=== PATIENT | male | born 1960 | race Caucasian/White ===

== ENCOUNTER 2018-03-10 09:25 | Inpatient (IN) | payer OTHER ==
[2018-03-10 09:39] VITALS: BMI 39.2
[2018-03-10] MEDS ORDERED: ACETAMINOPHEN 325 MG TABLET (FP) PO ONE (09:39)
[2018-03-10] MEDS ORDERED: SODIUM CHLORIDE 1,000 ML IV STA ×4 (09:52→17:23)
[2018-03-10] MEDS ORDERED: ACETAMINOPHEN 1000 MG/100 ML VIAL (NON FORMULARY) IVPB ONE (09:54)
--- NOTE | 2018-03-10 10:35 | PDOC ---
History of Present Illness - General Chief Complaint: SIRS, Suspected/Possible Stated Complaint: URINARY PROBLEM, VOMITING Time Seen by Provider: 03/10/18 09:49 History Source: Patient Exam Limitations: No Limitations - History of Present Illness Travel History: No Initial Comments: 03/10/18 10:00 57-year-old male with history of diabetes presents to the ED with complaints of chills upon awakening this morning along with dysuria and suprapubic pressure. Patient states had no urinary complaints prior to his morning. Patient also states history of enlarged prostate but denies frequent UTIs. Patient has no complaints of chest pain, shortness of breath, headache, cough, upper abdominal pain, back pain, or open wounds. Timing/Duration: reports: constant Quality: reports: moderate, fullness Abdominal Pain Onset Location: reports: suprapubic Pain Radiation: reports: no radiation Activities at Onset: reports: none Aggravating Factors: improves with: None Alleviating Factors: improves with: Voiding Past History - Travel Traveled outside of the country in the last 30 days: No - Past Medical History Allergies/Adverse Reactions: Allergies Allergy/AdvReac Type Severity Reaction Status Date / Time No Known Allergies Allergy Verified 03/10/18 09:34 Home Medications: Ambulatory Orders Aspirin [Aspirin EC] 81 mg PO DAILY 03/10/18 Glipizide [Glipizide ER] 2.5 mg PO DAILY 03/10/18 Levothyroxine [Synthroid -] 100 mcg PO DAILY 03/10/18 Lisinopril 5 mg PO DAILY 03/10/18 Metformin HCl [Glucophage] 1,000 mg PO BID 03/10/18 Metoprolol Succinate [Toprol Xl] 25 mg PO DAILY 03/10/18 Pravastatin Sodium 20 mg PO HS 03/10/18 Tamsulosin HCl 0.4 mg PO HS 03/10/18 COPD: No Diabetes: Yes (NIDDM) HTN: Yes Hypercholesterolemia: Yes - Suicide/Smoking/Psychosocial Hx Smoking History: Never smoked Have you smoked in the past 12 months: No Information on smoking cessation initiated: No Hx Alcohol Use: No Drug/Substance Use Hx: No Substance Use Type: None Patient Lives Alone: No Lives with/in: spouse/SO Review of Systems - Review of Systems Able to Perform ROS?: No Constitutional: Yes: Chills, Fever, Weakness HEENTM: No: Symptoms Reported Respiratory: No: Symptoms reported Cardiac (ROS): No: Symptoms Reported ABD/GI: Yes: Abdominal cramping : Yes: Dysuria, Frequency. No: Flank Pain Musculoskeletal: No: Symptoms Reported Integumentary: No: Symptoms Reported Neurological: No: Symptoms reported Endocrine: No: Symptoms Reported Hematologic/Lymphatic: No: Symptoms Reported *Physical Exam - Vital Signs Last Vital Signs Temp Pulse Resp BP Pulse Ox 102.5 F H 105 H 18 148/90 100 03/10/18 09:35 03/10/18 09:35 03/10/18 09:35 03/10/18 09:35 03/10/18 09:35 - Physical Exam General Appearance: Yes: Nourished, Appropriately Dressed. No: Apparent Distress HEENT: positive: Pharynx Normal. negative: Pale Conjunctivae Respiratory/Chest: positive: Lungs Clear, Normal Breath Sounds. negative: Respiratory Distress, Accessory Muscle Use Cardiovascular: positive: Regular Rhythm, Tachycardia. negative: Murmur Gastrointestinal/Abdominal: positive: Soft, Tenderness (midsuprapubic) Extremity: positive: Normal Capillary Refill. negative: Pedal Edema Integumentary: positive: Normal Color, Warm, Moist Neurologic: positive: Motor Strength 5/5 (ambulatory) ED Treatment Course - LABORATORY CBC & Chemistry Diagram: 03/10/18 10:20 03/10/18 10:20 - RADIOLOGY Radiology Studies Ordered: Category Date Time Status CHEST X-RAY PORTABLE* [RAD] Stat Radiology 03/10/18 09:52 Ordered PELVIC / BLADDER US [US] Stat Ultrasound 03/10/18 10:01 Ordered - Medications Given in the ED: ED Medications Discontinued Medications Generic Name Dose Route Start Last Admin Trade Name Freq PRN Reason Stop Dose Admin Acetaminophen 975 mg 03/10/18 09:39 03/10/18 09:40 Tylenol - PO 03/10/18 09:40 975 mg NOW ONE Administration Medical Decision Making - Medical Decision Making 03/10/18 11:16 Patient arrives with fever, suprapubic tenderness and urinary complaints. Patient was febrile and tachycardic upon arrival. Septic workup initiated. Patient also ordered for bladder/pelvic ultrasound. 03/10/18 11:27 Laboratory Tests 03/10/18 03/10/18 03/10/18 10:20 10:20 10:20 WBC 14.3 H Hgb 13.1 Hct 39.2 Neutrophils % 94.6 H Lymphocytes % 2.9 L Monocytes % 1.6 L Sodium 138 Potassium 4.0 Chloride 103 Random Glucose 207 H Calcium 8.3 L Troponin I Ur Leukocyte Esterase 3+ H Urine WBC (Auto) 139 Urine RBC (Auto) 19 03/10/18 10:20 WBC Hgb Hct Neutrophils % Lymphocytes % Monocytes % Sodium Potassium Chloride Random Glucose Calcium Troponin I < 0.02 Ur Leukocyte Esterase Urine WBC (Auto) Urine RBC (Auto) Patient ordered for second bag of IV fluids along with IV ceftriaxone and will be admitted to the hospital since his primary care physician Dr. Ghulam Miranda does not admit to [facility] Patient pending ultrasound.. 03/10/18 12:42 case discussed with Lucero Salazar and patient will be accepted to [facility] inpatient under Dr. Ortiz. *DC/Admit/Observation/Transfer Diagnosis at time of Disposition: Severe sepsis, UTI (urinary tract infection) - Discharge Dispostion Decision to Admit order: Yes - Referrals Referrals: Ghulam Mueller MD [Primary Care Provider] - - Patient Instructions - Post Discharge Activity
[2018-03-10 10:36] LABS: BASO % 0.3 % (0-2.0); EOS % 0.6 % (0-4.5); HEMATOCRIT 39.2 % (35.4-49); HEMOGLOBIN 13.1 GM/dL (11.7-16.9); LYMPH % 2.9 % (8-40); MCH 31.5 pg (25.7-33.7); MCHC 33.4 g/dl (32.0-35.9); MEAN CELL VOLUME 94.4 fl (80-96); MEAN PLT VOLUME 7.8 fl (7.5-11.1); MONO % 1.6 % (3.8-10.2); NEUT % 94.6 % (42.8-82.8); PLATELET COUNT 194 K/MM3 (134-434); RBC 4.15 M/mm3 (4.00-5.60); RDW 13.5 % (11.9-15.9); WHITE BLOOD COUNT 14.3 K/mm3 (4.0-10.0)
[2018-03-10 10:37] LABS: URINE APPEARANCE SLCLOUDY; URINE BILIRUBIN NEGATIVE (<2.0 mg/dL); URINE BLOOD 2+ (NEGATIVE); URINE COLOR LTYELLOW; URINE GLUCOSE (UA) NEGATIVE (NEGATIVE); URINE KETONE NEGATIVE (NEGATIVE); URINE NITRITE NEGATIVE (NEGATIVE); URINE UROBILINOGEN NEGATIVE mg/dL (0.2-1.0)
[2018-03-10 10:44] LABS: URINE LEUK ESTERASE 3+ (NEGATIVE); URINE PROTEIN 1+ (NEGATIVE)
[2018-03-10 10:48] LABS: EPI CELLS RARE /HPF (FEW); YEAST FEW
[2018-03-10 10:50] LABS: INR 1.1 (0.82-1.09); PROTHROMBIN TIME (PATIENT) 12.4 SEC (9.7-13.0)
[2018-03-10 11:00] LABS: ALBUMIN 3.8 g/dl (3.4-5.0); ALK PHOS 77 U/L (45-117); ANION GAP 8 (8-16); BILIRUBIN,TOTAL 0.9 mg/dL (0.2-1.0); BLOOD UREA NITROGEN 16 mg/dL (7-18); CALCIUM 8.3 mg/dL (8.5-10.1); CHLORIDE 103 mmol/L (98-107); CO2 27 mmol/L (21-32); CREATININE 1.1 mg/dL (0.7-1.3); GLUCOSE,RANDOM 207 mg/dL (74-106); SGOT/AST 15 U/L (15-37); SGPT/ALT 26 U/L (12-78); SODIUM 138 mmol/L (136-145); TOT PROT 7.3 g/dl (6.4-8.2)
[2018-03-10 11:02] LABS: VENOUS PH 7.41 (7.32-7.42); VENOUS PO2 42.8 mmHg (28-48)
[2018-03-10] MEDS ORDERED: CEFTRIAXONE 1 GM in DEXTROSE 5%-WATER - 50 ML IVPB ONE (11:23)
[2018-03-10] MEDS ORDERED: CEFTRIAXONE 1 GM/50 ML BAG ONE (11:25)
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
[2018-03-10 12:46] LABS: ACANTHOCYTES 0; ANISOCYTOSIS 0; HELMET CELLS 0; HOWELL-JOLLY BODIES 0; MACROCYTOSIS 0; OVALOCYTE 0; PLATELET ESTIMATE NORMAL; ROULEAU 0; SICKELED CELLS 0; TARGET CELLS 0; TEAR DROP CELLS 0; TOXIC GRANULATION 0
[2018-03-10] MEDS ORDERED: IBUPROFEN 600 MG TABLET (FP) PO ONE ×2 (13:10)
[2018-03-10] MEDS: ACETAMINOPHEN 325 MG TABLET (FP) PO PRN (17:27)
[2018-03-10] MEDS: INSULIN SLIDING SCALE (NOVOLOG) 1 VIAL SQ SCH ×2 (17:40→21:56)
[2018-03-10] MEDS: SODIUM CHLORIDE 1,000 ML IV SCH (20:00)
[2018-03-10] MEDS: TAMSULOSIN HCL 0.4 MG CAP.ER.24H (FP) PO SCH (21:49)
[2018-03-10] MEDS: ATORVASTATIN CA 10 MG TABLET (FP) PO SCH (21:50)
[2018-03-11] MEDS: ACETAMINOPHEN 325 MG TABLET (FP) PO PRN ×4 (00:17→21:04)
[2018-03-11] MEDS: SODIUM CHLORIDE 1,000 ML IV SCH ×3 (03:17→21:12)
[2018-03-11] MEDS: LEVOTHYROXINE NA 100 MCG TABLET (FP) PO SCH (06:02)
[2018-03-11] MEDS: INSULIN SLIDING SCALE (NOVOLOG) 1 VIAL SQ SCH ×5 (06:03→21:05)
[2018-03-11 07:58] LABS: BASO % 0.4 % (0-2.0); EOS % 0.3 % (0-4.5); HEMATOCRIT 34.2 % (35.4-49); HEMOGLOBIN 11.7 GM/dL (11.7-16.9); MCH 32.4 pg (25.7-33.7); MCHC 34.1 g/dl (32.0-35.9); MEAN PLT VOLUME 8.4 fl (7.5-11.1); MONO % 2.6 % (3.8-10.2); NEUT % 95.7 % (42.8-82.8); PLATELET COUNT 151 K/MM3 (134-434); RDW 13.8 % (11.9-15.9); WHITE BLOOD COUNT 12.6 K/mm3 (4.0-10.0)
[2018-03-11 08:53] LABS: ANION GAP 8 (8-16); BLOOD UREA NITROGEN 14 mg/dL (7-18); CALCIUM 7.3 mg/dL (8.5-10.1); CHLORIDE 106 mmol/L (98-107); CO2 25 mmol/L (21-32); GLUCOSE,RANDOM 180 mg/dL (74-106); MAGNESIUM 1.2 mg/dL (1.8-2.4); POTASSIUM 3.9 mmol/L (3.5-5.1); SODIUM 139 mmol/L (136-145)
[2018-03-11 08:58] LABS: ALK PHOS 60 U/L (45-117); BILIRUBIN,TOTAL 1.4 mg/dL (0.2-1.0); CREATININE 1.1 mg/dL (0.7-1.3); SGOT/AST 20 U/L (15-37); SGPT/ALT 25 U/L (12-78); TOT PROT 5.9 g/dl (6.4-8.2)
[2018-03-11] MEDS ORDERED: CEFTRIAXONE 1 GM in DEXTROSE 5%-WATER 100 ML IVPB SCH (10:00)
[2018-03-11] MEDS ORDERED: cefTRIAXone SODIUM 1 GM VIAL ONE (10:14)
[2018-03-11] MEDS ORDERED: DEXTROSE 5%-WATER 100 ML IVPB ONE (10:14)
[2018-03-11] MEDS: ENOXAPARIN NA (PORCINE) 40 MG/0.4 ML DISP.SYRIN SQ SCH (10:33)
[2018-03-11] MEDS: ASPIRIN COATED 81 MG TABLET.EC PO SCH (10:33)
[2018-03-11] MEDS: LISINOPRIL 5 MG TABLET (FP) PO SCH (10:33)
[2018-03-11] MEDS: metoPROLOL SUCCINATE 25 MG TAB.SR.24H (FP) PO SCH (10:34)
--- NOTE | 2018-03-11 15:09 | PN ---
Physical Exam: SUBJECTIVE: Patient seen and examined. Complaining of headache, body aches. OBJECTIVE: Vital Signs Period Temp Pulse Resp BP Sys/Jasmine Pulse Ox Last 24 Hr 98 F-102.5 F 86-102 18-20 87-139/47-73 96 GENERAL: The patient is awake, alert, and fully oriented, ill-appearing. LUNGS: Breath sounds equal, clear to auscultation bilaterally. No wheezes, and no crackles. No accessory muscle use. HEART: Regular rate and rhythm, normal S1 and S2 ABDOMEN: Soft, nontender, not distended, normoactive bowel sounds, no guarding, no rebound UPPER EXTREMITIES: 2+ pulses, warm, well-perfused. No cyanosis. No clubbing. No peripheral edema. LOWER EXTREMITIES: 2+ pulses, warm, well-perfused. No calf tenderness. No peripheral edema. NEUROLOGICAL: Cranial nerves II-XII intact. Normal speech. Laboratory Results - last 24 hr 03/10/18 03/10/18 03/10/18 16:15 17:00 17:16 WBC RBC Hgb Hct MCV MCH MCHC RDW Plt Count MPV Neutrophils % Lymphocytes % Monocytes % Eosinophils % Basophils % Nucleated RBC % Sodium Potassium Chloride Carbon Dioxide Anion Gap BUN Creatinine Creat Clearance w eGFR POC Glucometer 156 Random Glucose Hemoglobin A1c % Lactic Acid 3.2 H* Calcium Magnesium Total Bilirubin AST ALT Alkaline Phosphatase C-Reactive Protein 0.7 H Total Protein Albumin 03/10/18 03/10/18 03/11/18 20:00 21:52 05:56 WBC RBC Hgb Hct MCV MCH MCHC RDW Plt Count MPV Neutrophils % Lymphocytes % Monocytes % Eosinophils % Basophils % Nucleated RBC % Sodium Potassium Chloride Carbon Dioxide Anion Gap BUN Creatinine Creat Clearance w eGFR POC Glucometer 204 188 Random Glucose Hemoglobin A1c % Lactic Acid 2.4 H* Calcium Magnesium Total Bilirubin AST ALT Alkaline Phosphatase C-Reactive Protein Total Protein Albumin 03/11/18 03/11/18 03/11/18 06:25 06:25 06:25 WBC 12.6 H RBC 3.60 L Hgb 11.7 D Hct 34.2 L MCV 95.0 MCH 32.4 MCHC 34.1 RDW 13.8 Plt Count 151 D MPV 8.4 Neutrophils % 95.7 H Lymphocytes % 1.0 L D Monocytes % 2.6 L Eosinophils % 0.3 Basophils % 0.4 Nucleated RBC % 0 Sodium 139 Potassium 3.9 Chloride 106 Carbon Dioxide 25 Anion Gap 8 BUN 14 Creatinine 1.1 Creat Clearance w eGFR > 60 POC Glucometer Random Glucose 180 H Hemoglobin A1c % 7.6 H Lactic Acid Calcium 7.3 L Magnesium 1.2 L Total Bilirubin 1.4 H D AST 20 D ALT 25 Alkaline Phosphatase 60 D C-Reactive Protein Total Protein 5.9 L Albumin 3.0 L D 03/11/18 06:25 WBC RBC Hgb Hct MCV MCH MCHC RDW Plt Count MPV Neutrophils % Lymphocytes % Monocytes % Eosinophils % Basophils % Nucleated RBC % Sodium Potassium Chloride Carbon Dioxide Anion Gap BUN Creatinine Creat Clearance w eGFR POC Glucometer Random Glucose Hemoglobin A1c % Lactic Acid 2.4 H* Calcium Magnesium Total Bilirubin AST ALT Alkaline Phosphatase C-Reactive Protein Total Protein Albumin Active Medications Generic Name Dose Route Start Last Admin Trade Name Freq PRN Reason Stop Dose Admin Acetaminophen 650 mg 03/10/18 14:59 03/11/18 13:31 Tylenol - PO 650 mg Q6H PRN Administration FEVER Aspirin 81 mg 03/11/18 10:00 03/11/18 10:33 Ecotrin - PO 81 mg DAILY ISAI Administration Atorvastatin Calcium 10 mg 03/10/18 22:00 03/10/18 21:50 Lipitor - PO 10 mg HS ISAI Administration Enoxaparin Sodium 40 mg 03/11/18 10:00 03/11/18 10:33 Lovenox - SQ 40 mg DAILY ISAI Administration Sodium Chloride 1,000 mls @ 125 mls/hr 03/10/18 15:00 03/11/18 03:17 Normal Saline - IV 125 mls/hr ASDIR ISAI Administration Meropenem 1 gm/ Dextrose 100 mls @ 200 mls/hr 03/11/18 15:00 IVPB Q8H-IV ISAI Insulin Aspart 1 vial 03/10/18 16:30 03/11/18 06:03 Novolog Vial Sliding Scale - SQ 2 unit ACHS ISAI Administration Protocol Levothyroxine Sodium 100 mcg 03/11/18 07:00 03/11/18 06:02 Synthroid - PO 100 mcg DAILY@0700 ISAI Administration Lisinopril 5 mg 03/11/18 10:00 03/11/18 10:33 Prinivil PO 5 mg DAILY ISAI Administration Metoprolol Succinate 25 mg 03/11/18 10:00 03/11/18 10:34 Toprol Xl - PO 25 mg DAILY ISAI Administration Tamsulosin HCl 0.4 mg 03/10/18 22:00 03/10/18 21:49 Flomax - PO 0.4 mg HS ISAI Administration ASSESSMENT/PLAN 57 year-old male with a PMH significant for NIDDM and BPH. Admitted for severe sepsis secondary to UTI. Severe sepsis secondary to UTI --Tm 102.5, WBC 12.6k --BP stabilized after 4L of fluids --was anuric for most of yesterday, started making urine last night ~ 50cc's per hour --urine culture LFGNB and NLFGNB --discussed with Dr. Negro, will start carbapenem --US kidneys pending NIDDM --Novolog sliding scale coverage BPH --US shows enlarged prostate but no post void residual FEN Fluids: NS @ 125mL/hr Electrolytes: replete as indicated Nutrition: regular diet DVT prophylaxis: lovenox Dispo: continues to require inpatient care. Full code. Visit type - Emergency Visit Emergency Visit: Yes ED Registration Date: 03/10/18 Care time: The patient presented to the Emergency Department on the above date and was hospitalized for further evaluation of their emergent condition. - New Patient This patient is new to me today: Yes Date on this admission: 03/11/18 - Critical Care Critical Care patient: Yes Total Critical Care Time (in minutes): 35 Critical Care Statement: The care of this patient involved high complexity decision making to prevent further life threatening deterioration of the patient 's condition and/or to evaluate & treat vital organ system(s) failure or risk of failure.
[2018-03-11] MEDS ORDERED: INSULIN (NOVOLOG) ASPART 100 UNITS/ML 10ML VIAL ONE (15:21)
--- NOTE | 2018-03-11 16:07 | PN ---
Progress Note (short form) - Note Progress Note: ID consult dictated imp/reccd sepsis UTI-no prior history, prior prostate biopsy several years ago acute prostatitis bph with urinary retention, yoo placed in ED diabetes bladder/renal sonogram carbapenem/ivf f/u cultures urology consult d/w hospitalist
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
[2018-03-11] MEDS: MEROPENEM 1 GM in DEXTROSE 5%-WATER 100 ML IVPB SCH ×2 (17:45→21:04)
[2018-03-11] MEDS ORDERED: MAGNESIUM SULF 50% (8.12 MEQ/2 ML-1 GM VIAL) IVPB ONE (19:07)
[2018-03-11] MEDS ORDERED: MAGNESIUM SULFATE IN WATER 2 GM/50 ML IVPB IVPB ONE (19:15)
[2018-03-11] MEDS: ATORVASTATIN CA 10 MG TABLET (FP) PO SCH (21:05)
[2018-03-11] MEDS: TAMSULOSIN HCL 0.4 MG CAP.ER.24H (FP) PO SCH (21:05)
[2018-03-11] MEDS ORDERED: LACTOBACILLUS ACIDOPHILUS 1 TABLET PO ONE (21:27)
[2018-03-12] MEDS: MEROPENEM 1 GM in DEXTROSE 5%-WATER 100 ML IVPB SCH ×3 (02:13→17:40)
[2018-03-12] MEDS: ACETAMINOPHEN 325 MG TABLET (FP) PO PRN ×2 (04:33→12:14)
[2018-03-12] MEDS: INSULIN SLIDING SCALE (NOVOLOG) 1 VIAL SQ SCH ×4 (06:38→22:00)
[2018-03-12] MEDS: LEVOTHYROXINE NA 100 MCG TABLET (FP) PO SCH (06:38)
[2018-03-12] MEDS ORDERED: PT OWN MED DRAWER 7, Y5N ONE (07:15)
[2018-03-12] MEDS ORDERED: INSULIN (NOVOLOG) ASPART 100 UNITS/ML 10ML VIAL ONE ×2 (07:15→12:12)
--- NOTE | 2018-03-12 08:49 | PN ---
Progress Note (short form) - Note Progress Note: no fever this am still some headache eating Vital Signs Period Temp Pulse Resp BP Sys/Jasmine Pulse Ox Last 24 Hr 98.2 F-102.9 F 89-102 18-20 115-139/60-73 94 cor-rrr lungs clear abd soft,nt ext no edema +yoo CBC, BMP 03/11/18 06:25 03/11/18 06:25 Microbiology 03/10/18 10:00 Urine - Urine Clean Catch Urine Culture - Preliminary Non Lactose Fermenting Gnb Lactose Fermenting Neg Bacilli 03/10/18 10:10 Blood - Peripheral Venous Blood Culture - Preliminary NO GROWTH OBTAINED AFTER 24 HOURS, INCUBATION TO CONTINUE FOR 4 DAYS. 03/10/18 10:00 Blood - Peripheral Venous Blood Culture - Preliminary NO GROWTH OBTAINED AFTER 24 HOURS, INCUBATION TO CONTINUE FOR 4 DAYS. a/p sepsis suspect acute prostatitis/UTI suggest urology eval continue antibiotics f/u cultures diabetes
[2018-03-12] MEDS: ASPIRIN COATED 81 MG TABLET.EC PO SCH (09:12)
[2018-03-12] MEDS: metoPROLOL SUCCINATE 25 MG TAB.SR.24H (FP) PO SCH (09:12)
[2018-03-12] MEDS: ENOXAPARIN NA (PORCINE) 40 MG/0.4 ML DISP.SYRIN SQ SCH (09:13)
[2018-03-12] MEDS: LISINOPRIL 5 MG TABLET (FP) PO SCH (09:13)
[2018-03-12] MEDS: SODIUM CHLORIDE 1,000 ML IV SCH ×3 (09:13→17:44)
--- NOTE | 2018-03-12 14:05 | PN ---
Physical Exam: SUBJECTIVE: Patient seen and examined oob to chair. Family present. States tylenol helps with headache but would like it dosed more frequently. For first time patient states he has a cat at home and four days prior to this admission the cat scratched him on his right hand. Hand became red and swollen. No streaking up the arm. Sometimes the cat clamps down on his hand but he does not think his hand was punctured on this occasion. OBJECTIVE: Vital Signs Period Temp Pulse Resp BP Sys/Jasmine Pulse Ox Last 24 Hr 98.2 F-102.9 F 89-102 18-20 115-138/66-77 94 GENERAL: The patient is awake, alert, and fully oriented, in no acute distress. LUNGS: Breath sounds equal, clear to auscultation bilaterally, no wheezes, no crackles, no accessory muscle use. HEART: Regular rate and rhythm, S1, S2 without murmur, rub or gallop. ABDOMEN: Soft, nontender, nondistended, normoactive bowel sounds, no guarding, no rebound, no hepatosplenomegaly, no masses. RIGHT HAND: Two 1cm healed scratches on dorsal aspect of right hand; no erythema ; no swelling; no lymphangitis EXTREMITIES: 2+ pulses, warm, well-perfused, no edema. NEUROLOGICAL: Cranial nerves II through XII grossly intact. Normal speech, gait not observed. PSYCH: Normal mood, normal affect. SKIN: Warm, dry, normally pigmented. CBCD WBC 12.6 K/mm3 (4.0-10.0) H 03/11/18 06:25 RBC 3.60 M/mm3 (4.00-5.60) L 03/11/18 06:25 Hgb 11.7 GM/dL (11.7-16.9) D 03/11/18 06:25 Hct 34.2 % (35.4-49) L 03/11/18 06:25 MCV 95.0 fl (80-96) 03/11/18 06:25 MCHC 34.1 g/dl (32.0-35.9) 03/11/18 06:25 RDW 13.8 % (11.9-15.9) 03/11/18 06:25 Plt Count 151 K/MM3 (134-434) D 03/11/18 06:25 MPV 8.4 fl (7.5-11.1) 03/11/18 06:25 CMP Sodium 139 mmol/L (136-145) 03/11/18 06:25 Potassium 3.9 mmol/L (3.5-5.1) 03/11/18 06:25 Chloride 106 mmol/L (98-107) 03/11/18 06:25 Carbon Dioxide 25 mmol/L (21-32) 03/11/18 06:25 Anion Gap 8 (8-16) 03/11/18 06:25 BUN 14 mg/dL (7-18) 03/11/18 06:25 Creatinine 1.1 mg/dL (0.7-1.3) 03/11/18 06:25 Creat Clearance w eGFR > 60 (>60) 03/11/18 06:25 Calcium 7.3 mg/dL (8.5-10.1) L 03/11/18 06:25 Total Bilirubin 1.4 mg/dL (0.2-1.0) H D 03/11/18 06:25 AST 20 U/L (15-37) D 03/11/18 06:25 ALT 25 U/L (12-78) 03/11/18 06:25 Alkaline Phosphatase 60 U/L (45-117) D 03/11/18 06:25 Total Protein 5.9 g/dl (6.4-8.2) L 03/11/18 06:25 Albumin 3.0 g/dl (3.4-5.0) L D 03/11/18 06:25 Active Medications Generic Name Dose Route Start Last Admin Trade Name Juan M PRN Reason Stop Dose Admin Acetaminophen 650 mg 03/10/18 14:59 03/12/18 12:14 Tylenol - PO 650 mg Q6H PRN Administration FEVER Aspirin 81 mg 03/11/18 10:00 03/12/18 09:12 Ecotrin - PO 81 mg DAILY ISAI Administration Atorvastatin Calcium 10 mg 03/10/18 22:00 03/11/18 21:05 Lipitor - PO 10 mg HS ISAI Administration Enoxaparin Sodium 40 mg 03/11/18 10:00 03/12/18 09:13 Lovenox - SQ 40 mg DAILY ISAI Administration Sodium Chloride 1,000 mls @ 125 mls/hr 03/10/18 15:00 03/12/18 09:13 Normal Saline - IV 125 mls/hr ASDIR ISAI Administration Meropenem 1 gm/ Dextrose 100 mls @ 200 mls/hr 03/11/18 15:00 03/12/18 09:12 IVPB 200 mls/hr Q8H-IV ISAI Administration Insulin Aspart 1 vial 03/10/18 16:30 03/12/18 12:15 Novolog Vial Sliding Scale - SQ 4 unit ACHS ISAI Administration Protocol Levothyroxine Sodium 100 mcg 03/11/18 07:00 03/12/18 06:38 Synthroid - PO 100 mcg DAILY@0700 ISAI Administration Lisinopril 5 mg 03/11/18 10:00 03/12/18 09:13 Prinivil PO 5 mg DAILY ISAI Administration Metoprolol Succinate 25 mg 03/11/18 10:00 03/12/18 09:12 Toprol Xl - PO 25 mg DAILY ISAI Administration Tamsulosin HCl 0.4 mg 03/10/18 22:00 03/11/18 21:05 Flomax - PO 0.4 mg HS ISAI Administration ASSESSMENT/PLAN: 57 year-old male with a PMH significant for NIDDM and BPH. Admitted for severe sepsis secondary to UTI. Severe sepsis secondary to UTI --Tm 102.9, leukocytosis --BP stabilized after 4L of fluids --UOP ~50cc's/hr; yoo d/c'd --urine culure E.coli spears sensitive --continue meropenem pending ID reassessment Cat scratch --start azithromycin --B. henselae Ab pending Diarrhea --c.diff, stool cultures ordered NIDDM --Novolog sliding scale coverage BPH --US shows enlarged prostate but no post void residual FEN Fluids: NS @ 125mL/hr Electrolytes: replete as indicated Nutrition: regular diet DVT prophylaxis: lovenox Dispo: continues to require inpatient care. Full code. Visit type - Emergency Visit Emergency Visit: Yes ED Registration Date: 03/10/18 Care time: The patient presented to the Emergency Department on the above date and was hospitalized for further evaluation of their emergent condition. - New Patient This patient is new to me today: No - Critical Care Critical Care patient: No
[2018-03-12] MEDS ORDERED: AZITHROMYCIN 250 MG TABLET PO ONE (17:15)
[2018-03-12] MEDS: ACETAMINOPHEN 500 MG TABLET (FP) PO SCH ×2 (17:40→22:01)
[2018-03-12] MEDS: TAMSULOSIN HCL 0.4 MG CAP.ER.24H (FP) PO SCH (22:01)
[2018-03-12] MEDS: ATORVASTATIN CA 10 MG TABLET (FP) PO SCH (22:01)
[2018-03-13] MEDS: MEROPENEM 1 GM in DEXTROSE 5%-WATER 100 ML IVPB SCH ×2 (01:46→10:31)
[2018-03-13] MEDS: ACETAMINOPHEN 500 MG TABLET (FP) PO SCH ×6 (01:46→22:22)
[2018-03-13] MEDS: SODIUM CHLORIDE 1,000 ML IV SCH ×2 (01:47→04:07)
[2018-03-13] MEDS: INSULIN SLIDING SCALE (NOVOLOG) 1 VIAL SQ SCH ×4 (06:36→22:25)
[2018-03-13] MEDS: LEVOTHYROXINE NA 100 MCG TABLET (FP) PO SCH (06:37)
--- NOTE | 2018-03-13 08:07 | PN ---
Physical Exam: SUBJECTIVE: Patient ambulating in room, states he has had headaches on and off for the past few months. Headache pain frontal 8/10 associated with nausea, no photophobia. Agrees to CT scan. OBJECTIVE: head ct for persistent headaches right hand with edema, mild scratches noted from possible cat bites and scratches, no streaking noted xray right hand now Vital Signs Period Temp Pulse Resp BP Sys/Jasmine Pulse Ox Last 24 Hr 98.4 F-100.2 F 79-97 20-20 114-142/56-85 98 GENERAL: The patient is awake, alert, and fully oriented, in no acute distress. HEAD: Normal with no signs of trauma. EYES: PERRL, extraocular movements intact, sclera anicteric, conjunctiva clear. No ptosis. ENT: Ears normal, nares patent, oropharynx clear without exudates, moist mucous membranes. NECK: Trachea midline, full range of motion, supple. LUNGS: Breath sounds equal, clear to auscultation bilaterally, no wheezes, no crackles HEART: Regular rate and rhythm ABDOMEN: Soft, nontender, nondistended, normoactive bowel sounds EXTREMITIES: mild bilateral edema on lower ext, right hand with edema, will xray NEUROLOGICAL: Cranial nerves II through XII grossly intact. Normal speech, gait not observed. PSYCH: Normal mood, normal affect. SKIN: Warm, dry, normal turgor, no rashes or lesions noted Laboratory Results - last 24 hr 03/12/18 03/12/18 03/12/18 11:52 17:09 21:59 POC Glucometer 235 210 186 03/13/18 06:32 POC Glucometer 192 Active Medications Generic Name Dose Route Start Last Admin Trade Name Dedrickq PRN Reason Stop Dose Admin Acetaminophen 500 mg 03/12/18 18:00 03/13/18 06:36 Tylenol - PO Not Given Q4HPO ISAI Aspirin 81 mg 03/11/18 10:00 03/12/18 09:12 Ecotrin - PO 81 mg DAILY ISAI Administration Atorvastatin Calcium 10 mg 03/10/18 22:00 03/12/18 22:01 Lipitor - PO 10 mg HS ISAI Administration Azithromycin 250 mg 03/13/18 10:00 Zithromax - PO 03/16/18 10:01 DAILY ISAI Enoxaparin Sodium 40 mg 03/11/18 10:00 03/12/18 09:13 Lovenox - SQ 40 mg DAILY ISAI Administration Meropenem 1 gm/ Dextrose 100 mls @ 200 mls/hr 03/11/18 15:00 03/13/18 01:46 IVPB 200 mls/hr Q8H-IV ISAI Administration Sodium Chloride 1,000 mls @ 75 mls/hr 03/13/18 04:01 03/13/18 04:07 Normal Saline - IV Not Given ASDIR ISAI Insulin Aspart 1 vial 03/10/18 16:30 03/13/18 06:36 Novolog Vial Sliding Scale - SQ 2 unit ACHS ISAI Administration Protocol Levothyroxine Sodium 100 mcg 03/11/18 07:00 03/13/18 06:37 Synthroid - PO 100 mcg DAILY@0700 ISAI Administration Lisinopril 5 mg 03/11/18 10:00 03/12/18 09:13 Prinivil PO 5 mg DAILY ISAI Administration Metoprolol Succinate 25 mg 03/11/18 10:00 03/12/18 09:12 Toprol Xl - PO 25 mg DAILY ISAI Administration Tamsulosin HCl 0.4 mg 03/10/18 22:00 03/12/18 22:01 Flomax - PO 0.4 mg HS ISAI Administration ASSESSMENT/PLAN: Patient is a 57 year old male with a significant past medical history of diabetes, chronic headaches and BPH. He was admitted on 03/10/2018 for severe sepsis secondary to UTI. ID: Severe sepsis secondary to UTI On Meropenem per ID Fever resolving, WBC stable Cat scratch/bite reported on right hand B. henselae Ab pending Hand xray negative for fracture GI: Diarrhea Cdiff pending Endocrine: Diabetes, chronic SS : BPH, chronic On Flomax, finesteride FEN NS @ 125mL/hr replete as indicated regular diet DVT prophylaxis: lovenox Dispo: continues to require inpatient care. Full code.
[2018-03-13] MEDS ORDERED: AZITHROMYCIN 250 MG TABLET PO SCH (10:00)
[2018-03-13] MEDS: ENOXAPARIN NA (PORCINE) 40 MG/0.4 ML DISP.SYRIN SQ SCH (10:10)
[2018-03-13] MEDS: metoPROLOL SUCCINATE 25 MG TAB.SR.24H (FP) PO SCH (10:28)
[2018-03-13] MEDS: ASPIRIN COATED 81 MG TABLET.EC PO SCH (10:29)
[2018-03-13] MEDS: LISINOPRIL 5 MG TABLET (FP) PO SCH (10:29)
[2018-03-13] MEDS ORDERED: PT OWN MED DRAWER 7, Y5N ONE (10:33)
[2018-03-13] MEDS ORDERED: INSULIN (NOVOLOG) ASPART 100 UNITS/ML 10ML VIAL ONE (11:48)
--- NOTE | 2018-03-13 13:26 | CON.GU ---
Consult Consult Specialty:: Referred by:: Medicine Reason for Consultation:: acute prostatitis - History of Present Illness Chief Complaint: acute prostatitis History of Present Illness: 57 year old male with untreated BPH who presents with burning, painful and frequent urination. He has a history of BPH which is not treated. He reports having a prostate biopsy about five years ago which was negative. - History Source History Provided By: Patient Limitations to Obtaining History: No Limitations - Past Medical History Renal/: Yes: BPH, UTI - Alcohol/Substance Use Hx Alcohol Use: No - Smoking History Smoking history: Never smoked Have you smoked in the past 12 months: No Home Medications - Allergies Allergies/Adverse Reactions: Allergies Allergy/AdvReac Type Severity Reaction Status Date / Time No Known Allergies Allergy Verified 03/10/18 09:34 - Home Medications Home Medications: Ambulatory Orders Aspirin [Aspirin EC] 81 mg PO DAILY 03/10/18 Glipizide [Glipizide ER] 2.5 mg PO DAILY 03/10/18 Levothyroxine [Synthroid -] 100 mcg PO DAILY 03/10/18 Lisinopril 5 mg PO DAILY 03/10/18 Metformin HCl [Glucophage] 1,000 mg PO BID 03/10/18 Metoprolol Succinate [Toprol Xl] 25 mg PO DAILY 03/10/18 Pravastatin Sodium 20 mg PO HS 03/10/18 Tamsulosin HCl 0.4 mg PO HS 03/10/18 Review of Systems - Review of Systems Constitutional: reports: Chills, Fever Genitourinary: reports: Burning, Dysuria, Frequency. denies: Hematuria Physical Exam- Vital Signs: Vital Signs Temperature 98.4 F 03/13/18 05:00 Pulse Rate 79 03/13/18 05:00 Respiratory Rate 20 03/13/18 05:00 Blood Pressure 114/68 03/13/18 05:00 O2 Sat by Pulse Oximetry (%) 98 03/12/18 21:00 Constitutional: Yes: Well Nourished, No Distress, Calm Cardiovascular: Yes: WNL, Regular Rate and Rhythm Respiratory: Yes: WNL, Regular, CTA Bilaterally Gastrointestinal: Yes: WNL, Normal Bowel Sounds Renal/: Yes: WNL. No: Bladder Distention, CVA Tenderness - Left, CVA Tenderness - Right, Bruce Present Labs: CBC, BMP 03/11/18 06:25 03/11/18 06:25 Problem List - Problems (1) Benign localized hyperplasia of prostate with urinary retention Assessment/Plan: tamsulosin and finasteride Code(s): N40.1 - BENIGN PROSTATIC HYPERPLASIA WITH LOWER URINARY TRACT SYMP (2) Acute prostatitis Assessment/Plan: antibiotics Code(s): N41.0 - ACUTE PROSTATITIS
[2018-03-13] MEDS: FINASTERIDE 5 MG TABLET (FP) PO SCH (13:40)
[2018-03-13 13:41] LABS: BASO % 0.4 % (0-2.0); EOS % 1.4 % (0-4.5); HEMATOCRIT 34.3 % (35.4-49); HEMOGLOBIN 11.7 GM/dL (11.7-16.9); LYMPH % 11.8 % (8-40); MCH 32.1 pg (25.7-33.7); MCHC 34.2 g/dl (32.0-35.9); MEAN CELL VOLUME 93.8 fl (80-96); MEAN PLT VOLUME 8.3 fl (7.5-11.1); MONO % 6.3 % (3.8-10.2); NEUT % 80.1 % (42.8-82.8); PLATELET COUNT 131 K/MM3 (134-434); RBC 3.66 M/mm3 (4.00-5.60); RDW 13.7 % (11.9-15.9); WHITE BLOOD COUNT 4.8 K/mm3 (4.0-10.0)
--- NOTE | 2018-03-13 14:04 | PN ---
Progress Note (short form) - Note Progress Note: no fevers still some headache eating yoo out voiding Vital Signs Period Temp Pulse Resp BP Sys/Jasmine Pulse Ox Last 24 Hr 97.9 F-99.6 F 79-97 20-20 114-142/56-85 98 cor-rrr lungs clear abd soft,nt ext no edema no adenopathy mild right hand swelling no eschar, no phlebitis CBC, BMP 03/13/18 12:30 Microbiology 03/10/18 10:10 Blood - Peripheral Venous Blood Culture - Preliminary NO GROWTH OBTAINED AFTER 72 HOURS, INCUBATION TO CONTINUE FOR 2 DAYS. 03/10/18 10:00 Blood - Peripheral Venous Blood Culture - Preliminary NO GROWTH OBTAINED AFTER 72 HOURS, INCUBATION TO CONTINUE FOR 2 DAYS. 03/10/18 10:00 Urine - Urine Clean Catch Urine Culture - Final Escherichia Coli a/p sepsis suspect acute prostatitis/UTI suggest urology eval spears sensitive Ecoli switch to cefazolin plan home on bactrim when clinically improved will need long course for acute prostatitis-typically 4 to 6 weeks- should be monitored by his PMD and urologist with f/u labs while on bactrim diabetes Problem List - Problems (1) Severe sepsis Code(s): A41.9 - SEPSIS, UNSPECIFIED ORGANISM; R65.20 - SEVERE SEPSIS WITHOUT SEPTIC SHOCK (2) UTI (urinary tract infection) Code(s): N39.0 - URINARY TRACT INFECTION, SITE NOT SPECIFIED (3) Acute prostatitis Code(s): N41.0 - ACUTE PROSTATITIS (4) Benign localized hyperplasia of prostate with urinary retention Code(s): N40.1 - BENIGN PROSTATIC HYPERPLASIA WITH LOWER URINARY TRACT SYMP
[2018-03-13 14:21] LABS: ALBUMIN 2.8 g/dl (3.4-5.0); ALK PHOS 119 U/L (45-117); ANION GAP 7 (8-16); BILIRUBIN,TOTAL 0.7 mg/dL (0.2-1.0); BLOOD UREA NITROGEN 11 mg/dL (7-18); CHLORIDE 106 mmol/L (98-107); CO2 27 mmol/L (21-32); CREATININE 0.9 mg/dL (0.7-1.3); GLUCOSE,RANDOM 186 mg/dL (74-106); POTASSIUM 3.9 mmol/L (3.5-5.1); SGOT/AST 65 U/L (15-37); SGPT/ALT 98 U/L (12-78); SODIUM 140 mmol/L (136-145); TOT PROT 6.3 g/dl (6.4-8.2)
[2018-03-13] MEDS: CEFAZOLIN 2 GM/D5W 2 GM/50 ML ML IVPB SCH (17:29)
--- NOTE | 2018-03-13 17:35 | EKG ---
Test Reason : Blood Pressure : / mmHG Vent. Rate : 076 BPM Atrial Rate : 076 BPM P-R Int : 158 ms QRS Dur : 112 ms QT Int : 398 ms P-R-T Axes : 057 033 006 degrees QTc Int : 447 ms NORMAL SINUS RHYTHM NORMAL ECG NO PREVIOUS ECGS AVAILABLE Confirmed by MD Susanne, Jluis ([id number]) on 03/13/2018 5:34:26 PM Referred By: CA Ford DR Confirmed By:Jluis Skinner MD
[2018-03-13] MEDS: TAMSULOSIN HCL 0.4 MG CAP.ER.24H (FP) PO SCH (22:22)
[2018-03-13] MEDS: ATORVASTATIN CA 10 MG TABLET (FP) PO SCH (22:22)
[2018-03-13] MEDS: OFLOXACIN 0.3% OPHTHALMIC SOLUTION 5 ML BOTTLE OU SCH (22:26)
[2018-03-14] MEDS: CEFAZOLIN 2 GM/D5W 2 GM/50 ML ML IVPB SCH ×3 (01:05→18:05)
[2018-03-14] MEDS: SODIUM CHLORIDE 1,000 ML IV SCH (02:05)
[2018-03-14] MEDS: ACETAMINOPHEN 500 MG TABLET (FP) PO SCH ×2 (04:01→06:27)
[2018-03-14] MEDS: OFLOXACIN 0.3% OPHTHALMIC SOLUTION 5 ML BOTTLE OU SCH ×5 (06:27→22:34)
[2018-03-14] MEDS: INSULIN SLIDING SCALE (NOVOLOG) 1 VIAL SQ SCH ×4 (06:29→22:34)
[2018-03-14] MEDS: LEVOTHYROXINE NA 100 MCG TABLET (FP) PO SCH (06:30)
[2018-03-14 10:46] LABS: BASO % 0.5 % (0-2.0); EOS % 2.4 % (0-4.5); HEMATOCRIT 35.6 % (35.4-49); HEMOGLOBIN 12.2 GM/dL (11.7-16.9); LYMPH % 16.9 % (8-40); MCH 32.1 pg (25.7-33.7); MCHC 34.4 g/dl (32.0-35.9); MEAN CELL VOLUME 93.3 fl (80-96); MEAN PLT VOLUME 8.1 fl (7.5-11.1); MONO % 8.1 % (3.8-10.2); NEUT % 72.1 % (42.8-82.8); PLATELET COUNT 147 K/MM3 (134-434); RBC 3.82 M/mm3 (4.00-5.60); RDW 13.6 % (11.9-15.9)
[2018-03-14] MEDS: ASPIRIN COATED 81 MG TABLET.EC PO SCH (11:00)
[2018-03-14] MEDS: ENOXAPARIN NA (PORCINE) 40 MG/0.4 ML DISP.SYRIN SQ SCH (11:00)
[2018-03-14] MEDS: metoPROLOL SUCCINATE 25 MG TAB.SR.24H (FP) PO SCH (11:00)
[2018-03-14] MEDS: LISINOPRIL 5 MG TABLET (FP) PO SCH (11:00)
[2018-03-14] MEDS: FINASTERIDE 5 MG TABLET (FP) PO SCH (11:00)
[2018-03-14 11:12] LABS: ALBUMIN 2.9 g/dl (3.4-5.0); ANION GAP 6 (8-16); BLOOD UREA NITROGEN 14 mg/dL (7-18); CHLORIDE 107 mmol/L (98-107); CO2 29 mmol/L (21-32); GLUCOSE,RANDOM 167 mg/dL (74-106); POTASSIUM 4.3 mmol/L (3.5-5.1); SODIUM 142 mmol/L (136-145)
[2018-03-14 11:16] LABS: ALK PHOS 137 U/L (45-117); BILIRUBIN,TOTAL 0.7 mg/dL (0.2-1.0); CREATININE 0.9 mg/dL (0.7-1.3); SGOT/AST 110 U/L (15-37); TOT PROT 6.6 g/dl (6.4-8.2)
[2018-03-14] MEDS ORDERED: INSULIN (NOVOLOG) ASPART 100 UNITS/ML 10ML VIAL ONE (12:02)
[2018-03-14 13:28] LABS: SGPT/ALT 142 U/L (12-78)
--- NOTE | 2018-03-14 16:26 | PN ---
Progress Note (short form) - Note Progress Note: feels well no complaints Vital Signs Period Temp Pulse Resp BP Sys/Jasmine Pulse Ox Last 24 Hr 98 F-98.9 F 72-84 18-20 106-156/55-83 98 cor-rrr lungs clear abd soft,nt ext no edema CBC, BMP 03/14/18 10:05 03/14/18 10:05 Microbiology 03/13/18 02:30 Stool Salmonella/Shigella Culture - Preliminary NO ENTERIC PATHOGENS, 24 HOURS, ON PRIMARY PLATES 03/13/18 02:30 Stool Yersinia Culture - Preliminary NO ENTERIC PATHOGENS, 24 HOURS, ON PRIMARY PLATES 03/13/18 02:30 Stool Vibrio Culture - Final NO GROWTH OF VIBRIO SPECIES OBTAINED 03/13/18 02:30 Stool Escherichia coli 0157 Culture - Final NO GROWTH OF E COLI 0157 OBTAINED 03/10/18 10:10 Blood - Peripheral Venous Blood Culture - Preliminary NO GROWTH OBTAINED AFTER 96 HOURS, INCUBATION TO CONTINUE FOR 1 DAYS. 03/10/18 10:00 Blood - Peripheral Venous Blood Culture - Preliminary NO GROWTH OBTAINED AFTER 96 HOURS, INCUBATION TO CONTINUE FOR 1 DAYS. 03/12/18 19:30 Stool Clostridium difficile Antigen (AMANDA) - Final 03/12/18 19:30 Stool Clostridium difficile Toxin Assay - Final 03/10/18 10:00 Urine - Urine Clean Catch Urine Culture - Final Escherichia Coli a/p sepsis suspect acute prostatitis/UTI suggest urology eval spears sensitive Ecoli-spears sensitive plan home on bactrim when clinically improved will need long course for acute prostatitis-typically 4 to 6 weeks- should be monitored by his PMD and urologist with f/u labs while on bactrim abnormal LFTS workup in progress, apparently had recent MRI as outpt diabetes Problem List - Problems (1) Severe sepsis Code(s): A41.9 - SEPSIS, UNSPECIFIED ORGANISM; R65.20 - SEVERE SEPSIS WITHOUT SEPTIC SHOCK (2) UTI (urinary tract infection) Code(s): N39.0 - URINARY TRACT INFECTION, SITE NOT SPECIFIED (3) Acute prostatitis Code(s): N41.0 - ACUTE PROSTATITIS (4) Benign localized hyperplasia of prostate with urinary retention Code(s): N40.1 - BENIGN PROSTATIC HYPERPLASIA WITH LOWER URINARY TRACT SYMP
--- NOTE | 2018-03-14 21:56 | PN ---
Physical Exam: SUBJECTIVE: Patient seen and examined OBJECTIVE: Liver enzymes trending up, stop Tylenol, RUQ ultrasound ordered Vital Signs Period Temp Pulse Resp BP Sys/Jasmine Pulse Ox Last 24 Hr 98 F-98.9 F 74-84 18-20 106-156/55-83 98 GENERAL: The patient is awake, alert, and fully oriented, in no acute distress. HEAD: Normal with no signs of trauma. EYES: PERRL, extraocular movements intact, sclera anicteric, conjunctiva clear. No ptosis. ENT: Ears normal, nares patent, oropharynx clear without exudates, moist mucous membranes. NECK: Trachea midline, full range of motion, supple. LUNGS: Breath sounds equal, clear to auscultation bilaterally, no wheezes, no crackles HEART: Regular rate and rhythm ABDOMEN: Soft, nontender, nondistended, normoactive bowel sounds EXTREMITIES: mild bilateral edema on lower ext, right hand with edema, will xray NEUROLOGICAL: Cranial nerves II through XII grossly intact. Normal speech, gait not observed. PSYCH: Normal mood, normal affect. SKIN: Warm, dry, normal turgor, no rashes or lesions noted Laboratory Results - last 24 hr 03/13/18 03/14/18 03/14/18 22:24 06:25 10:05 WBC 5.0 RBC 3.82 L Hgb 12.2 Hct 35.6 MCV 93.3 MCH 32.1 MCHC 34.4 RDW 13.6 Plt Count 147 MPV 8.1 Neutrophils % 72.1 Lymphocytes % 16.9 D Monocytes % 8.1 Eosinophils % 2.4 Basophils % 0.5 Nucleated RBC % 0 Sodium Potassium Chloride Carbon Dioxide Anion Gap BUN Creatinine Creat Clearance w eGFR POC Glucometer 187 166 Random Glucose Calcium Total Bilirubin AST ALT Alkaline Phosphatase Total Protein Albumin 03/14/18 03/14/18 10:05 18:09 WBC RBC Hgb Hct MCV MCH MCHC RDW Plt Count MPV Neutrophils % Lymphocytes % Monocytes % Eosinophils % Basophils % Nucleated RBC % Sodium 142 Potassium 4.3 Chloride 107 Carbon Dioxide 29 Anion Gap 6 L BUN 14 D Creatinine 0.9 Creat Clearance w eGFR > 60 POC Glucometer 201 Random Glucose 167 H Calcium 8.0 L Total Bilirubin 0.7 AST 110 H D ALT 142 H D Alkaline Phosphatase 137 H Total Protein 6.6 Albumin 2.9 L Active Medications Generic Name Dose Route Start Last Admin Trade Name Freq PRN Reason Stop Dose Admin Aspirin 81 mg 03/11/18 10:00 03/14/18 11:00 Ecotrin - PO 81 mg DAILY ISAI Administration Atorvastatin Calcium 10 mg 03/10/18 22:00 03/13/18 22:22 Lipitor - PO 10 mg HS ISAI Administration Enoxaparin Sodium 40 mg 03/11/18 10:00 03/14/18 11:00 Lovenox - SQ 40 mg DAILY ISAI Administration Finasteride 5 mg 03/13/18 13:30 03/14/18 11:00 Proscar - PO 5 mg DAILY ISAI Administration Cefazolin Sodium/Dextrose 2 gm in 50 mls @ 100 mls/hr 03/13/18 18:00 18:05 Ancef 2 Gm Premixed Ivpb - IVPB 100 mls/hr Q8H-IV ISAI Administration Insulin Aspart 1 vial 03/10/18 16:30 03/14/18 18:10 Novolog Vial Sliding Scale - SQ 4 unit ACHS ISAI Administration Protocol Levothyroxine Sodium 100 mcg 03/11/18 07:00 03/14/18 06:30 Synthroid - PO 100 mcg DAILY@0700 ISAI Administration Lisinopril 5 mg 03/11/18 10:00 03/14/18 11:00 Prinivil PO 5 mg DAILY ISAI Administration Metoprolol Succinate 25 mg 03/11/18 10:00 03/14/18 11:00 Toprol Xl - PO 25 mg DAILY ISAI Administration Ofloxacin 2 drop 03/13/18 22:00 03/14/18 18:05 Ocuflox 0.3% Eye Drops - OU 03/18/18 21:59 2 drop Q4HWA ISAI Administration Tamsulosin HCl 0.4 mg 03/10/18 22:00 03/13/18 22:22 Flomax - PO 0.4 mg HS ISAI Administration ASSESSMENT/PLAN: Patient is a 57 year old male with a significant past medical history of diabetes, chronic headaches and BPH. He was admitted on 03/10/2018 for severe sepsis secondary to UTI. ID: Severe sepsis secondary to UTI, improving On Cefazolin per ID Fever resolved, WBC stable Cat scratch/bite reported on right hand Stop Azithomycin, No streaking, does not appear infected Mild edema of right hand, Hand xray negative for fracture Endocrine: Diabetes, chronic SS, monitor BGMS : BPH, chronic On Flomax, finesteride Voiding w/o difficulty Will need outpatient followup GI: Elevated LFTs Patient had recent MRI for this prior to admission RUQ u/s ordered FEN Stop IVF replete as indicated regular diet DVT prophylaxis: lovenox Dispo: continues to require inpatient care. Full code.
[2018-03-14] MEDS: TAMSULOSIN HCL 0.4 MG CAP.ER.24H (FP) PO SCH (22:34)
[2018-03-15] MEDS: CEFAZOLIN 2 GM/D5W 2 GM/50 ML ML IVPB SCH ×2 (01:44→10:34)
[2018-03-15] MEDS: INSULIN SLIDING SCALE (NOVOLOG) 1 VIAL SQ SCH ×2 (07:01→12:52)
[2018-03-15] MEDS: LEVOTHYROXINE NA 100 MCG TABLET (FP) PO SCH (07:02)
[2018-03-15] MEDS: OFLOXACIN 0.3% OPHTHALMIC SOLUTION 5 ML BOTTLE OU SCH ×2 (07:03→10:35)
[2018-03-15 07:32] LABS: BASO % 0.4 % (0-2.0); EOS % 2.3 % (0-4.5); HEMATOCRIT 32.9 % (35.4-49); HEMOGLOBIN 11.4 GM/dL (11.7-16.9); LYMPH % 17.5 % (8-40); MCH 32.3 pg (25.7-33.7); MCHC 34.7 g/dl (32.0-35.9); MEAN CELL VOLUME 93.2 fl (80-96); MEAN PLT VOLUME 7.9 fl (7.5-11.1); MONO % 6.9 % (3.8-10.2); NEUT % 72.9 % (42.8-82.8); PLATELET COUNT 152 K/MM3 (134-434); RBC 3.53 M/mm3 (4.00-5.60); RDW 13.8 % (11.9-15.9); WHITE BLOOD COUNT 6.4 K/mm3 (4.0-10.0)
[2018-03-15 07:40] LABS: ALBUMIN 2.8 g/dl (3.4-5.0); ANION GAP 6 (8-16); BILIRUBIN,TOTAL 0.5 mg/dL (0.2-1.0); CALCIUM 8.1 mg/dL (8.5-10.1); CHLORIDE 105 mmol/L (98-107); CO2 31 mmol/L (21-32); CREATININE 0.9 mg/dL (0.7-1.3); GLUCOSE,RANDOM 163 mg/dL (74-106); MAGNESIUM 1.9 mg/dL (1.8-2.4); POTASSIUM 4.5 mmol/L (3.5-5.1); SGOT/AST 61 U/L (15-37); SGPT/ALT 106 U/L (12-78); SODIUM 142 mmol/L (136-145); TOT PROT 6.1 g/dl (6.4-8.2)
[2018-03-15 07:41] LABS: ALK PHOS 129 U/L (45-117)
[2018-03-15] MEDS ORDERED: PT OWN MED DRAWER 7, Y5N ONE (07:44)
[2018-03-15 07:52] LABS: BLOOD UREA NITROGEN 15 mg/dL (7-18)
[2018-03-15] MEDS: ENOXAPARIN NA (PORCINE) 40 MG/0.4 ML DISP.SYRIN SQ SCH (10:34)
[2018-03-15] MEDS: FINASTERIDE 5 MG TABLET (FP) PO SCH (10:35)
[2018-03-15] MEDS: metoPROLOL SUCCINATE 25 MG TAB.SR.24H (FP) PO SCH (10:35)
[2018-03-15] MEDS: ASPIRIN COATED 81 MG TABLET.EC PO SCH (10:35)
[2018-03-15] MEDS: LISINOPRIL 5 MG TABLET (FP) PO SCH (10:35)
--- NOTE | 2018-03-15 13:15 | PN ---
Progress Note, Physician Chief Complaint: ID Cefazolin - Current Medication List Current Medications: Active Medications Aspirin (Ecotrin -) 81 mg PO DAILY [facility] Last Admin: 03/15/18 10:35 Dose: 81 mg Atorvastatin Calcium (Lipitor -) 10 mg PO HS [facility] Last Admin: 03/13/18 22:22 Dose: 10 mg Enoxaparin Sodium (Lovenox -) 40 mg SQ DAILY [facility] Last Admin: 03/15/18 10:34 Dose: 40 mg Finasteride (Proscar -) 5 mg PO DAILY [facility] Last Admin: 03/15/18 10:35 Dose: 5 mg Cefazolin Sodium/Dextrose (Ancef 2 Gm Premixed Ivpb -) 2 gm in 50 mls @ 100 mls /hr IVPB Q8H-IV [facility] Last Admin: 03/15/18 10:34 Dose: 100 mls/hr Insulin Aspart (Novolog Vial Sliding Scale -) 1 vial SQ [facility]; Protocol Last Admin: 03/15/18 12:52 Dose: 2 unit Levothyroxine Sodium (Synthroid -) 100 mcg PO DAILY@0700 [facility] Last Admin: 03/15/18 07:02 Dose: 100 mcg Lisinopril (Prinivil) 5 mg PO DAILY [facility] Last Admin: 03/15/18 10:35 Dose: 5 mg Metoprolol Succinate (Toprol Xl -) 25 mg PO DAILY [facility] Last Admin: 03/15/18 10:35 Dose: 25 mg Ofloxacin (Ocuflox 0.3% Eye Drops -) 2 drop OU Q4HWA [facility] Stop: 03/18/18 21:59 Last Admin: 03/15/18 10:35 Dose: 2 drop Tamsulosin HCl (Flomax -) 0.4 mg PO [facility] Last Admin: 03/14/18 22:34 Dose: 0.4 mg - Objective Vital Signs: Vital Signs Temperature 98.7 F 03/15/18 05:44 Pulse Rate 73 03/15/18 05:44 Respiratory Rate 18 03/15/18 05:44 Blood Pressure 140/82 03/15/18 05:44 O2 Sat by Pulse Oximetry (%) 96 03/14/18 21:00 Constitutional: Yes: Well Nourished, No Distress Eyes: Yes: WNL, Conjunctiva Clear HENT: Yes: WNL, Atraumatic Neck: Yes: WNL, Supple Cardiovascular: Yes: Regular Rate and Rhythm, S1, S2. No: Murmur Respiratory: Yes: WNL, Regular, CTA Bilaterally Gastrointestinal: Yes: WNL, Normal Bowel Sounds, Soft. No: Tenderness Edema: Yes Labs: CBC, BMP 03/15/18 06:00 03/15/18 06:00 INR, PTT INR 1.10 (0.82-1.09) 03/10/18 10:20 Assessment/Plan Microbiology 03/10/18 10:00 Urine - Urine Clean Catch Urine Culture - Final Escherichia Coli 03/10/18 10:00 Blood - Peripheral Venous Blood Culture - Final NO GROWTH AFTER 5 DAYS INCUBATION Laboratory Tests 03/10/18 03/15/18 03/15/18 10:20 06:00 06:00 WBC 6.4 Hgb 11.4 L Hct 32.9 L Plt Count 152 ALT 106 H D Alkaline Phosphatase 129 H Ur Leukocyte Esterase 3+ H Urine WBC (Auto) 139 Urine RBC (Auto) 19 Assessment E Coli UTI pansensitive LFT improving Plan Bactrim po bid 10 days at home Kylee CALDWELL
--- NOTE | 2018-03-15 14:18 | DS ---
Physical Exam: SUBJECTIVE: Patient seen and examined at the bedside. OBJECTIVE: Vital Signs Period Temp Pulse Resp BP Sys/Jasmine Pulse Ox Last 24 Hr 98.3 F-99 F 73-79 18-18 130-143/60-82 96 PHYSICAL EXAM GENERAL: The patient is awake, alert, and fully oriented, in no acute distress. HEAD: Normal with no signs of trauma. EYES: PERRL, extraocular movements intact, sclera anicteric, conjunctiva clear. No ptosis. ENT: Ears normal, nares patent, oropharynx clear without exudates, moist mucous membranes. NECK: Trachea midline, full range of motion, supple. LUNGS: Breath sounds equal, clear to auscultation bilaterally, no wheezes, no crackles HEART: Regular rate and rhythm ABDOMEN: Soft, nontender, nondistended, normoactive bowel sounds EXTREMITIES: mild bilateral edema on lower ext, right hand with edema, will xray NEUROLOGICAL: Cranial nerves II through XII grossly intact. Normal speech, gait not observed. PSYCH: Normal mood, normal affect. SKIN: Warm, dry, normal turgor, no rashes or lesions noted LABS Laboratory Results - last 24 hr 03/14/18 03/14/18 03/15/18 18:09 22:29 06:00 WBC 6.4 RBC 3.53 L Hgb 11.4 L Hct 32.9 L MCV 93.2 MCH 32.3 MCHC 34.7 RDW 13.8 Plt Count 152 MPV 7.9 Neutrophils % 72.9 Lymphocytes % 17.5 Monocytes % 6.9 Eosinophils % 2.3 Basophils % 0.4 Nucleated RBC % 0 Sodium Potassium Chloride Carbon Dioxide Anion Gap BUN Creatinine Creat Clearance w eGFR POC Glucometer 201 196 Random Glucose Calcium Magnesium Total Bilirubin AST ALT Alkaline Phosphatase Total Protein Albumin 03/15/18 03/15/18 06:00 07:00 WBC RBC Hgb Hct MCV MCH MCHC RDW Plt Count MPV Neutrophils % Lymphocytes % Monocytes % Eosinophils % Basophils % Nucleated RBC % Sodium 142 Potassium 4.5 Chloride 105 Carbon Dioxide 31 Anion Gap 6 L BUN 15 Creatinine 0.9 Creat Clearance w eGFR > 60 POC Glucometer 161 Random Glucose 163 H Calcium 8.1 L Magnesium 1.9 Total Bilirubin 0.5 D AST 61 H D ALT 106 H D Alkaline Phosphatase 129 H Total Protein 6.1 L Albumin 2.8 L HOSPITAL COURSE: Date of Admission:03/10/18 Date of Discharge: 03/15/18 ASSESSMENT/PLAN: Patient is a 57 year old male with a significant past medical history of diabetes, chronic headaches and BPH. He was admitted on 03/10/2018 for severe sepsis secondary to UTI. ID: Severe sepsis secondary to UTI, resolved Treated with Cefazolin, continue Keflex 750mg BID x 10 days Fever resolved, WBC stable Urology follow up outpatient Endocrine: Diabetes, chronic On home Metformin : BPH, chronic On Flomax, finesteride Voiding w/o difficulty Will need outpatient followup with urology GI: Elevated LFTs Patient had recent MRI for this prior to admission RUQ u/s ordered and reviewed Patient asked for GI referral with Dr. Frye Discharge home with GI follow up for elevated LFTs and urology evaluation. Minutes to complete discharge: 60 Discharge Summary Reason For Visit: SEVERE SEPSIS, UTI Current Active Problems Acute prostatitis (Acute) Benign localized hyperplasia of prostate with urinary retention (Acute) Severe sepsis (Acute) UTI (urinary tract infection) (Acute) Condition: Improved - Instructions Diet, Activity, Other Instructions: Mr. Castro: Please return to the ER with any new or worsening symptoms. Please call with any questions that you may have Tabitha Mayorga, LISANDRA [phone] [facility] Referrals: Ghulam Mueller MD [Primary Care Provider] - Diego Frye MD [Staff Physician] - Tree Jimenez MD [Staff Physician] - Disposition: HOME - Home Medications Comprehensive Discharge Medication List: Ambulatory Orders Aspirin [Aspirin EC] 81 mg PO DAILY 03/10/18 Glipizide [Glipizide ER] 2.5 mg PO DAILY 03/10/18 Levothyroxine [Synthroid -] 100 mcg PO DAILY 03/10/18 Lisinopril 5 mg PO DAILY 03/10/18 Metformin HCl [Glucophage] 1,000 mg PO BID 03/10/18 Metoprolol Succinate [Toprol Xl] 25 mg PO DAILY 03/10/18 Pravastatin Sodium 20 mg PO HS 03/10/18 Tamsulosin HCl 0.4 mg PO HS 03/10/18 Finasteride 5 mg PO DAILY #30 tablet 03/14/18 Tamsulosin HCl 0.4 mg PO HS #30 cap.er.24h 03/14/18 This patient is new to me today: No Emergency Visit: Yes ED Registration Date: 03/10/18 Care time: The patient presented to the Emergency Department on the above date and was hospitalized for further evaluation of their emergent condition. Critical Care patient: No - Discharge Referral Referred to [facility].: No
[2018-03-15 14:24] VITALS: BP 139/75; PULSE 77; TEMP 98
[2018-03-15] MEDS ORDERED: CEPHALEXIN MONOHYDRATE 250 MG CAPSULE (FP) PO SCH (22:00)
== END 2018-03-15 15:45 | disposition home or self-care (01) | DRG 720 ==
LOC: JER 09:25 → JERBED 12:54 → J7W 15:14
PROVIDERS: ADMIT Hospitalist; ATTEND Nurse Practitioner Family
DX: A41.9 Sepsis, unspecified organism (principal); N39.0 Urinary tract infection, site not specified; N41.0 Acute prostatitis; B96.20 Unspecified Escherichia coli [E. coli] as the cause of diseases classified elsewhere; R19.7 Diarrhea, unspecified; E11.9 Type 2 diabetes mellitus without complications; R65.20 Severe sepsis without septic shock; N40.1 Benign prostatic hyperplasia with lower urinary tract symptoms; R00.0 Tachycardia, unspecified; R94.5 Abnormal results of liver function studies; W55.03XA Scratched by cat, initial encounter; R74.8 Abnormal levels of other serum enzymes; R33.8 Other retention of urine
CPT/HCPCS: 36415; 70450-TC; 71045-TC-FY; 73130-TC-RT-FY; 76705-TC; 76775-TC; 76856-TC; 80053; 81003; 81015; 82803; 82962; 83036; 83605; 83735; 84484; 85025; 85610; 86140; 86611; 87040; 87045; 87046; 87086; 87186; 87324; 87449; 93005; 93010; 99285-25; J7030

== ENCOUNTER 2020-10-02 14:28 | Emergency (ER) | payer OTHER ==
[2020-10-02 14:46] VITALS: BP 131/83; PULSE 98; BMI 38.2
[2020-10-02] MEDS ORDERED: IBUPROFEN 600 MG TABLET (FP) PO ONE ×2 (17:12→17:18)
== END 2020-10-02 17:26 | disposition home or self-care (01) ==
LOC: JERFT 14:28
DX: S46.911A Strain of unspecified muscle, fascia and tendon at shoulder and upper arm level, right arm, initial encounter (principal); S50.01XA Contusion of right elbow, initial encounter; S90.122A Contusion of left lesser toe(s) without damage to nail, initial encounter; M54.5 Low back pain; W19.XXXA Unspecified fall, initial encounter
CPT/HCPCS: 70450-TC; 72100-TC-FY; 72125-TC; 73030-TC-RT-FY; 73090-TC-RT-FY; 73630-TC-LT; 99285-25

== ENCOUNTER 2020-10-21 14:16 | Emergency (ER) | payer OTHER ==
[2020-10-21 14:48] VITALS: BP 111/75; PULSE 79; TEMP 98.3; BMI 38.2
[2020-10-21] MEDS ORDERED: KETOROLAC TROMETHAMINE 60 MG/2 ML VIAL IM ONE (16:35)
[2020-10-21] MEDS ORDERED: KETOROLAC TROMETHAMINE 60 MG/2 ML VIAL ONE (16:45)
== END 2020-10-21 17:11 | disposition home or self-care (01) ==
LOC: JERFT 14:16
PROC: 3E0233Z Introduction of Anti-inflammatory into Muscle, Percutaneous Approach (ICD-10-PCS; principal; 2020-10-21)
DX: M25.511 Pain in right shoulder (principal)
CPT/HCPCS: 99284-25

== ENCOUNTER 2021-09-23 08:30 | Observation (INO) | payer OTHER ==
[2021-09-23 09:45] LABS: INR 1.13 (0.83-1.09); PROTHROMBIN TIME (PATIENT) 12.7 SEC (9.7-13.0)
[2021-09-23 09:47] LABS: ACTIVATED PTT 18.5 SECONDS (25.2-36.5)
[2021-09-23 09:57] LABS: CHLORIDE 104 mmol/L (98-107); SODIUM 138 mmol/L (136-145)
[2021-09-23 10:00] LABS: ALBUMIN 3.4 g/dl (3.4-5.0); CALCIUM 8.9 mg/dL (8.5-10.1)
[2021-09-23 10:01] LABS: ANION GAP 7 MMOL/L (8-16); BLOOD UREA NITROGEN 19.9 mg/dL (7-18); CO2 28 mmol/L (21-32); GLUCOSE,RANDOM 171 mg/dL (74-106)
[2021-09-23 10:03] LABS: SGOT/AST 37 U/L (15-37)
[2021-09-23 10:04] LABS: CHOLESTEROL 128 mg/dL (50-200); CREATININE 1.1 mg/dL (0.55-1.3); SGPT/ALT 25 U/L (13-61); TOT PROT 7.1 g/dl (6.4-8.2); TRIGLYCERIDES 197 mg/dL (0-150)
[2021-09-23 10:05] LABS: ALK PHOS 64 U/L (45-117); BILIRUBIN,TOTAL 0.4 mg/dL (0.2-1); LDL CHOLESTEROL (ONLY SJRH) 73 mg/dL (5-100)
[2021-09-23 10:06] LABS: HDL CHOLESTEROL 27 mg/dL (40-60)
[2021-09-23 10:45] LABS: BASO % 0.7 % (0-2.0); EOS % 2.6 % (0-4.5); HEMATOCRIT 38.3 % (35.4-49); HEMOGLOBIN 13.4 GM/dL (11.7-16.9); LYMPH % 18.8 % (8-40); MCH 32.5 pg (25.7-33.7); MCHC 34.9 g/dl (32.0-35.9); MEAN CELL VOLUME 93.2 fl (80-96); MEAN PLT VOLUME 7.4 fl (7.5-11.1); MONO % 4.8 % (3.8-10.2); NEUT % 73.1 % (42.8-82.8); PLATELET COUNT 215 10^3/uL (134-434); RBC 4.11 M/mm3 (4.00-5.60); RDW 13.5 % (11.9-15.9); WHITE BLOOD COUNT 6.7 K/mm3 (4.0-10.0)
[2021-09-23] MEDS ORDERED: ASPIRIN 325 MG TABLET PO ONE (12:11)
[2021-09-23] MEDS ORDERED: ASPIRIN 325 MG ENTERIC COATED TABLET (FP) ONE ×2 (12:20→12:48)
[2021-09-23] MEDS ORDERED: LISINOPRIL 5 MG TABLET ONE (12:49)
[2021-09-23] MEDS ORDERED: ENOXAPARIN NA (PORCINE) 40 MG/0.4 ML DISP.SYRIN SQ ONE (12:49)
[2021-09-23] MEDS: LISINOPRIL 5 MG TABLET PO SCH (12:55)
[2021-09-23] MEDS: ENOXAPARIN NA (PORCINE) 40 MG/0.4 ML DISP.SYRIN SQ SCH (12:55)
[2021-09-23] MEDS: FINASTERIDE 5 MG TABLET (FP) PO SCH (13:07)
[2021-09-23] MEDS: LEVOTHYROXINE NA 125 MCG TABLET (FP) PO SCH (13:07)
[2021-09-23 13:29] LABS: URINE APPEARANCE CLEAR; URINE BILIRUBIN NEGATIVE (NEGATIVE); URINE COLOR YELLOW; URINE GLUCOSE (UA) NEGATIVE (NEGATIVE); URINE KETONE NEGATIVE (NEGATIVE); URINE LEUK ESTERASE NEGATIVE (NEGATIVE); URINE NITRITE NEGATIVE (NEGATIVE); URINE PROTEIN NEGATIVE (NEGATIVE); URINE UROBILINOGEN 0.2 mg/dL (0.2-1.0)
[2021-09-23] MEDS: INSULIN SLIDING SCALE (NOVOLOG) 1 VIAL SQ SCH ×2 (18:26→23:04)
[2021-09-23] MEDS ORDERED: ATORVASTATIN CA 10 MG TABLET (FP) PO SCH (22:00)
[2021-09-23 22:45] VITALS: BMI 38.1
[2021-09-24] MEDS: INSULIN SLIDING SCALE (NOVOLOG) 1 VIAL SQ SCH ×2 (06:03→12:29)
[2021-09-24 08:18] LABS: BASO % 0.6 % (0-2.0); EOS % 2.5 % (0-4.5); HEMATOCRIT 39.5 % (35.4-49); HEMOGLOBIN 13.4 GM/dL (11.7-16.9); LYMPH % 18.8 % (8-40); MCH 32.1 pg (25.7-33.7); MCHC 33.9 g/dl (32.0-35.9); MEAN CELL VOLUME 94.8 fl (80-96); MEAN PLT VOLUME 7.4 fl (7.5-11.1); MONO % 4.8 % (3.8-10.2); NEUT % 73.3 % (42.8-82.8); PLATELET COUNT 226 10^3/uL (134-434); RBC 4.17 M/mm3 (4.00-5.60); RDW 13.5 % (11.9-15.9); WHITE BLOOD COUNT 7.6 K/mm3 (4.0-10.0)
[2021-09-24 08:29] VITALS: TEMP 98.8
[2021-09-24 08:47] LABS: PHOSPHOROUS 3.7 mg/dL (2.5-4.9)
[2021-09-24] MEDS ORDERED: metoPROLOL SUCCINATE 25 MG TAB.SR.24H (FP) PO SCH (10:00)
[2021-09-24] MEDS ORDERED: ASPIRIN 81 MG CHEWABLE TABLETS PO SCH (10:00)
[2021-09-24] MEDS: ENOXAPARIN NA (PORCINE) 40 MG/0.4 ML DISP.SYRIN SQ SCH (10:31)
[2021-09-24] MEDS: FINASTERIDE 5 MG TABLET (FP) PO SCH (10:32)
[2021-09-24] MEDS: LEVOTHYROXINE NA 125 MCG TABLET (FP) PO SCH (10:32)
[2021-09-24] MEDS: LISINOPRIL 5 MG TABLET PO SCH (10:32)
[2021-09-24 16:41] VITALS: BP 113/61; PULSE 83
== END 2021-09-24 17:21 | disposition home or self-care (01) ==
LOC: JER 08:30 → JERBED 11:44 → J4W 21:09
PROVIDERS: ADMIT Internal Medicine; ATTEND Internal Medicine
PROC: 3E023GC Introduction of Other Therapeutic Substance into Muscle, Percutaneous Approach (ICD-10-PCS; principal; 2021-09-23)
DX: M62.81 Muscle weakness (generalized) (principal); E03.9 Hypothyroidism, unspecified; E11.9 Type 2 diabetes mellitus without complications; E78.5 Hyperlipidemia, unspecified; I10 Essential (primary) hypertension; E78.00 Pure hypercholesterolemia, unspecified; E66.9 Obesity, unspecified; Z68.38 Body mass index [BMI] 38.0-38.9, adult
CPT/HCPCS: 36415; 70450-TC; 70551-TC; 80053; 80061; 81003; 82550; 82962; 83036; 83735; 84100; 84132; 84436; 84439; 84443; 84484; 85025; 85610; 85730; 87804; 93005; 93010; 96372; 97116-GP; 97161-GP; 99285-25; C9803; G0378; U0003; U0005

== ENCOUNTER 2022-12-22 20:50 | Emergency (ER) | payer OTHER ==
[2022-12-22 21:05] VITALS: BP 135/83; PULSE 78; RESP 18; TEMP 98; BMI 37.0
[2022-12-22] MEDS ORDERED: ACETAMINOPHEN 1000 MG/100 ML BAG IVPB ONE (22:27)
[2022-12-22] MEDS ORDERED: METOCLOPRAMIDE HCL INJECTION 10 MG/2 ML VIAL IVPUSH ONE (22:32)
[2022-12-22] MEDS ORDERED: METOCLOPRAMIDE HCL INJECTION 10 MG/2 ML VIAL ONE (22:59)
[2022-12-22] MEDS ORDERED: ACETAMINOPHEN INJECTION 100 ML IVPB ONE (22:59)
[2022-12-22 23:44] LABS: INR 1.09 (0.83-1.09); PROTHROMBIN TIME (PATIENT) 12.6 SEC (9.7-13.0)
[2022-12-22 23:47] LABS: ACTIVATED PTT 31.9 SECONDS (25.2-36.5)
[2022-12-22 23:54] LABS: BASO % 0.9 % (0-2.0); EOS % 2.8 % (0-4.5); HEMATOCRIT 39.7 % (35.4-49); HEMOGLOBIN 13.3 GM/dL (11.7-16.9); LYMPH % 22.8 % (8-40); MCH 31.3 pg (25.7-33.7); MCHC 33.4 g/dl (32.0-35.9); MEAN CELL VOLUME 93.7 fl (80-96); MEAN PLT VOLUME 7.6 fl (7.5-11.1); MONO % 5.7 % (3.8-10.2); NEUT % 67.8 % (42.8-82.8); PLATELET COUNT 215 10^3/uL (134-434); RBC 4.24 M/mm3 (4.00-5.60); RDW 13.6 % (11.9-15.9); WHITE BLOOD COUNT 6.5 K/mm3 (4.0-10.0)
[2022-12-23 00:16] LABS: CALCIUM 8.8 mg/dL (8.5-10.1)
[2022-12-23 00:17] LABS: ALBUMIN 3.6 g/dl (3.4-5.0); BLOOD UREA NITROGEN 22.1 mg/dL (7-18)
[2022-12-23 00:20] LABS: CREATININE 1.5 mg/dL (0.55-1.3)
[2022-12-23 00:21] LABS: BILIRUBIN,TOTAL 0.4 mg/dL (0.2-1); TOT PROT 6.9 g/dl (6.4-8.2)
== END 2022-12-23 00:59 | disposition home or self-care (01) ==
LOC: JER 20:50
PROC: 3E033NZ Introduction of Analgesics, Hypnotics, Sedatives into Peripheral Vein, Percutaneous Approach (ICD-10-PCS; principal; 2022-12-22)
PROC: 3E033GC Introduction of Other Therapeutic Substance into Peripheral Vein, Percutaneous Approach (ICD-10-PCS; 2022-12-22)
DX: R51.9 Headache, unspecified (principal)
CPT/HCPCS: 36415; 70450-TC; 80053; 85025; 85610; 85730; 99284-25

== ENCOUNTER 2023-10-10 17:05 | Emergency (ER) | payer OTHER ==
[2023-10-10 17:18] VITALS: BP 126/76; PULSE 81; RESP 18; TEMP 98.3; BMI 35.9
[2023-10-10] MEDS ORDERED: ASPIRIN COATED 81 MG TABLET.EC PO ONE (18:25)
[2023-10-10] MEDS ORDERED: ASPIRIN COATED 81 MG TABLET.EC ONE (18:30)
[2023-10-10 18:58] LABS: BASO % 0.9 % (0-2.0); EOS % 2.5 % (0-4.5); HEMATOCRIT 41.1 % (35.4-49); LYMPH % 16.8 % (8-40); MCH 31.8 pg (25.7-33.7); MEAN CELL VOLUME 93.5 fl (80-96); MEAN PLT VOLUME 7.3 fl (7.5-11.1); NEUT % 75.8 % (42.8-82.8); PLATELET COUNT 247 10^3/uL (134-434); RDW 13.6 % (11.9-15.9); WHITE BLOOD COUNT 7.8 K/mm3 (4.0-10.0)
[2023-10-10 19:09] LABS: INR 1.17 (0.83-1.09); PROTHROMBIN TIME (PATIENT) 13.5 SEC (9.7-13.0)
[2023-10-10 19:12] LABS: ACTIVATED PTT 31.1 SECONDS (25.2-36.5)
[2023-10-10 19:15] LABS: POTASSIUM 4.1 mmol/L (3.5-5.1)
[2023-10-10 19:17] LABS: CALCIUM 9.4 mg/dL (8.5-10.1)
[2023-10-10 19:18] LABS: ALBUMIN 3.5 g/dl (3.4-5.0); BLOOD UREA NITROGEN 14.1 mg/dL (7-18)
[2023-10-10 19:20] LABS: CREATININE 1.1 mg/dL (0.55-1.3)
[2023-10-10 19:22] LABS: BILIRUBIN,TOTAL 0.5 mg/dL (0.2-1); TOT PROT 7.1 g/dl (6.4-8.2)
[2023-10-10] MEDS ORDERED: AMOXICILLIN 500 MG CAPSULE (FP) PO ONE (23:39)
[2023-10-10] MEDS ORDERED: AMOX TR/POT CLAV 875MG/125MG TABLETS (FP) ONE (23:58)
== END 2023-10-11 00:07 | disposition home or self-care (01) ==
LOC: JER 17:05
DX: R07.2 Precordial pain (principal); R00.2 Palpitations; H66.92 Otitis media, unspecified, left ear; Z20.822 Contact with and (suspected) exposure to COVID-19
CPT/HCPCS: 0241U-QW; 36415; 71045-TC-FY; 71275-TC; 80053; 84484; 85025; 85610; 85730; 86850; 86900; 86901; 93005; 93010; 93970-TC; 99285-25; Q9967